=== PATIENT | male | born 1970 | race Caucasian/White ===

== ENCOUNTER 2018-10-31 08:26 | Emergency (ER) | payer MEDICAID ==
[~2018-10-31] VITALS: Ht 167.6 cm; Wt 78.9 kg
[~2018-10-31 08:26] MED LIST: HYDR-906 PO; MECL12.574 PO; NAPR-985 PO; ONDA4TAB14 PO; ONDA4TAB35 PO; TAMS-14 PO
[2018-10-31 08:30] VITALS: BP 125/77; PULSE 63; RESP 17; Ht 167.6 cm; Wt 78.9 kg
[2018-10-31] MEDS ORDERED: ONDANSETRON (ODT) 4 MG TAB ODT STA (08:44)
--- NOTE | 2018-10-31 08:48 | ERD ---
ER Documentation Chief Complaint Chief Complaint DIZZINESS SINCE THIS AM, VOMITING AT HOME HPI Patient is a 48-year-old male with no medical problems who presents with dizziness. He said that it feels like the "room is spinning". He said this for the past 4 days. He denies pain. He has had vomiting as well. He has had no treatment as of yet. He has had no fevers but felt chills. He goes to a local clinic for his primary care. ROS All systems reviewed and are negative except as per history of present illness. Medications Home Meds Active Scripts Ondansetron (Ondansetron Odt) 4 Mg Tab.rapdis, 4 MG PO Q6H PRN for NAUSEA AND/OR VOMITING, #10 TAB Prov:KACEY ARGUELLES MD 10/31/18 Meclizine Hcl* (Antivert*) 12.5 Mg Tab, 25 MG PO Q6H PRN for DIZZINESS, #20 TAB Prov:KACEY ARGUELLES MD 10/31/18 Naproxen* (Naprosyn*) 500 Mg Tablet, 500 MG PO BID, #20 TAB Prov:SUSY LEAL DO 03/03/15 Ondansetron Hcl* (Zofran* ODT) 4 mg -ODT Tab.disper, 4 MG PO Q4H PRN for NAUSEA AND OR VOMITING, #10 TAB Prov:SUSY LEAL DO 03/03/15 Hydrocodone Bit-Acetaminophen ([place]) 5-325 Mg Tablet, 1 TAB PO Q4H PRN for PAIN, #14 TAB Prov:SUSY LEAL DO 03/03/15 Tamsulosin Hcl* (Flomax*) 0.4 Mg Cap.er.24h, 0.4 MG PO DAILY, #14 CAP Prov:SUSY LEAL DO 03/03/15 Allergies Allergies: Coded Allergies: No Known Allergy (Unverified , 03/08/15) PMhx/Soc Medical and Surgical Hx: pt denies Medical Hx, pt denies Surgical Hx History of Surgery: No Anesthesia Reaction: No Hx Neurological Disorder: No Hx Respiratory Disorders: No Hx Cardiac Disorders: No Hx Psychiatric Problems: No Hx Miscellaneous Medical Probl: No Hx Alcohol Use: No Hx Substance Use: No Hx Tobacco Use: No Smoking Status: Current every day smoker FmHx Family History: No diabetes Physical Exam Vitals Vital Signs Date Temp Pulse Resp B/P (MAP) Pulse Ox O2 O2 Flow FiO2 Time Delivery Rate 10/31/18 97.3 63 17 125/77 100 08:30 (93) Physical Exam Const: No acute distress Head: Atraumatic Eyes: Normal Conjunctiva ENT: Normal External Ears, Nose and Mouth. Neck: Full range of motion. No meningismus. Resp: Clear to auscultation bilaterally Cardio: Regular rate and rhythm, no murmurs Abd: Soft, non tender, non distended. Normal bowel sounds Skin: No petechiae or rashes Back: No midline or flank tenderness Ext: No cyanosis, or edema Neur: Awake and alert, cranial nerves II through XII intact, strength is 5 out of 5 in all 4 extremity's, no slurred speech, no pronator drift Psych: Normal Mood and Affect Results 24 hrs Current Medications Medications Dose Sig/Veronika Start Time Status Last (Trade) Ordered Route PRN Stop Time Admin Dose Reason Admin Meclizine 25 mg ONCE ONCE 10/31/18 DC 10/31/18 HCl PO 09:00 08:50 (Antivert) 10/31/18 09:01 Ondansetron 4 mg ONCE STAT 10/31/18 DC 10/31/18 HCl (Zofran ODT 08:44 08:50 Odt) 10/31/18 08:45 Procedures/MDM Patient is a 48-year-old male who presents with the feeling of room spinning. I believe he likely has acute vertigo. I doubt stroke, intrarenal hemorrhage, or mass. His neurologic exam is normal. I believe the risk of doing a CT scan of the brain outweigh the benefits. The patient will be treated with meclizine and Zofran and the first doses were given in the emergency department. The patient will be given a prescription for Zofran and meclizine as well. Patient can return for any worsening symptoms. Departure Diagnosis: Primary Impression: Vertigo Additional Impression: Dizziness Condition: Fair Patient Instructions: Vertigo, Unspecified Referrals: Your doctor Additional Instructions: Llame al doctor MAANA y emerson josefa AKIL PARA DENTRO DE 1-2 GUZMAN.Dgale a la secretaria que nosotros le instruimos hacer esta akil.Avise o llame si stone co ndicin se empeora antes de la akil. Regresa aqui si peor o no mejor. KACEY ARGUELLES MD Oct 31, 2018 08:48
[2018-10-31] MEDS ORDERED: MECLIZINE 12.5 MG TAB PO ONE (09:00)
== END 2018-10-31 08:54 | disposition home or self-care (01) ==
LOC: FTE 08:26
DX: R42 Dizziness and giddiness (principal); F17.210 Nicotine dependence, cigarettes, uncomplicated; R11.10 Vomiting, unspecified
CPT/HCPCS: Z7502; Z7610; 99283